=== PATIENT | male | born 1975 | race Caucasian/White ===

== ENCOUNTER 2019-12-07 09:15 | Inpatient (IN) | payer OTHER, SELFPAY ==
[2019-12-07] VITALS (17 sets, daily range): BP systolic 103–142; BP diastolic 67–99; PULSE 60–99; RESP 14–20; TEMP 36.6–37.2; O2SAT 94–100; BMI 24.4
--- NOTE | 2019-12-07 | SCC_ITS ---
Procedure Done: Intramedullary nail left tibia, closed treatment left distal fibula 190.7 seconds of fluoroscopic guidance, for a cumulative dose of 9.54 mGy, was provided to Dr. Yadav by the radiology department. C-arm images of the LEFT tib/fib were saved for the patient's permanent record. [facility]
--- NOTE | 2019-12-07 | XR_ITS ---
WS: [id number] C-ARM RADIOGRAPHS LEFT TIBIA-FIBULA; 5 IMAGES HISTORY: OR PICS COMPARISON: 12/07/2019 Intraoperative long intramedullary tibial lindsey with distal locking screws. Fracture in the distal thir d of the tibia has been reduced and now in normal position. XR/XR tibia fibula LT 2V [id number] IMPRESSION: Intraoperative fixation and reduction distal tibial fracture in good alignment.
--- NOTE | 2019-12-07 09:36 | XR_ITS ---
WS: [id number] LEFT TIBIA-FIBULA 2 VIEWS HISTORY: deformity/injury COMPARISON: None available. Oblique comminuted fracture involving the distal third of the tibia. Distal fracture fragment is disp laced laterally by 13 mm. There is an additional oblique fracture through the distal fibula. This fra cture is only minimally displaced. XR/XR tibia fibula LT 2V [id number] IMPRESSION: 1. Oblique, mildly comminuted and laterally displaced fracture distal third of the tibia. 2. Nondisplaced oblique fracture distal fibula.
--- NOTE | 2019-12-07 09:36 | W.ED.EXTPRO ---
Documented by User: JOSÉ ANTONIO Waller 12/07/19 12:28 HPI - Extremity Problem General: Chief complaint: Extremity Injury, Lower Stated complaint: L LEG INJURY Time Seen by Provider: 12/07/19 09:22 Source: patient Mode of arrival: wheelchair Limitations: no limitations History of Present Illness: HPI Narrative: Patient is a 44-year-old male who presents to ED today for evaluation of a left lower extremity injury. Patient was at work when he accidentally fell off a metal roof (9-10 feet) and states he felt the left leg break. No other injuries sustained during fall. Did not strike his head or lose consciousness. He does not complain of neck or back pain. Patient cannot ambulate on the extremity due to pain. He does complain of some tingling to his left foot. Patient is an otherwise healthy male. He takes no daily medications. MD Complaint: extremity pain Onset (ago): hour(s) Location: left and lower extremity Associated symptoms: Deny chest pain Review of Systems Eyes: Denies: change in vision Card: Denies: chest pain Resp: Denies: dyspnea GI: Denies: abdominal pain Musc: Reports: extremity pain (L LE); Denies: neck pain, back pain, joint pain or joint swelling Neuro: Reports: sensory changes (reports tingling to L LE) Physical Exam Const: COMMON NORMALS: no acute distress, average body habitus, patient oriented x3, no limitations, healthy appearing, alert and well nourished ORIENTATION/CONSCIOUSNESS: Yes oriented to person, Yes oriented to place and Yes oriented to time Neck/C-Spine: CERVICAL SPINE: Yes cervical ROM normal and No Cervical spine tenderness Chest: COMMONS NORMALS: normal inspection of the chest and normal palpation of entire chest wall Resp: COMMON NORMALS: normal respiratory effort and clear to auscultation bilaterally AUSCULTATION: clear to auscultation bilaterally Cardio: COMMON NORMALS: regular rate and regular rhythm RATE: regular rate RHYTHM: regular rhythm Back/Pelvis: COMMON NORMALS: thoracic and lumbar spine normal to inspection, no thoracic nor lumbar tenderness and thoraco-lumbar ROM normal Extremity: GENERAL: Yes normal exam except as noted LEFT LOWER EXTREMITY: Yes lower leg (deformity noted to L LE consistent with tib/fib fracture ) Neuro: COMMON NORMALS: patient oriented x3, no focal motor deficits and no sensory deficits noted SENSORIUM/ORIENTATION: Yes alert, Yes oriented to person, Yes oriented to place and Yes oriented to time GAIT: Yes Unable to assess gait Skin: COMMON NORMALS: no rashes or lesions noted GENERAL SKIN EXAM: no rashes or lesions noted Course Consultations: Consultation #1: Dr. Yadav-has reviewed pts XRs and would like him admitted to him. Plan for OR most likely today. Vital Signs: Vital signs: Vital Signs Temperature 98.4 F 12/07/19 15:51 Pulse Rate 76 12/07/19 15:51 Respiratory Rate 16 12/07/19 15:51 Blood Pressure 106/75 12/07/19 15:51 Pulse Oximetry 98 12/07/19 15:51 MDM - Extremity (Nontraumatic) MDM Narrative: Medical decision making narrative: Dr. Liriano has also seen/evaluated patient and agrees with plan for admit. He placed admit orders at the request of Dr. Yadav. Lab Data: Labs: Lab Results 12/07/19 12/07/19 Range/Units 10:40 10:40 WBC 12.7 H (4.0-10.0) 10^3/ uL RBC 5.12 (4.1-5.3) 10^6/u L Hgb 14.5 (11.7-16.6) g/dL Hct 44.6 (42.0-52.0) % MCV 87.1 (80-94) fL MCH 28.3 (28.0-34.0) pg MCHC 32.5 (30.0-36.0) g/dL RDW 13.2 (12.1-15.1) % Plt Count 271 (130-400) 10^3/c mm MPV 9.6 (7.4-10.4) fL Neut % (Auto) 81.7 % Lymph % (Auto) 11.1 % Luce % (Auto) 5.6 % Eos % (Auto) 0.3 % Baso % (Auto) 0.6 % Neut # (Auto) 10.38 H (1.8-7.7) 10^3/u L Lymph # (Auto) 1.4 (0.8-4.8) 10^3/u L Luce # (Auto) 0.7 (0.2-0.9) 10^3/u L Eos # (Auto) 0.0 (0.0-0.8) 10^3/u L Baso # (Auto) 0.1 (0.0-0.1) 10^3/u L Nucleated RBC % (a uto) 0 % Nucleated RBCs # 0.0 /100WBC Sodium 137 (136-145) mmol/L Potassium 4.1 (3.5-5.1) mmol/L Chloride 105 (98-107) mmol/L Carbon Dioxide 24 (22-29) mmol/L Anion Gap 12.1 (5-19) BUN 21 H (6-20) mg/dL Creatinine 0.9 (0.7-1.2) mg/dL GFR Calculation 91.3 (90-130) mL/min Glucose 135 H (65-115) mg/dL Calculated Osmolal ity 283 L (285-295) mOsm/k g Calcium 8.9 (8.5-10.5) mg/dL Total Bilirubin 0.6 (0.15-1.2) mg/dL AST 29 (0-40) U/L ALT 28 (0-41) U/L Alkaline Phosphata se 61 (40-130) IU/L Total Protein 6.9 (6.6-8.7) g/dL Albumin 4.4 (3.5-5.2) g/dL Globulin 2.5 (1.3-4.6) g/dL Imaging Data^: CXR: Radiologist's impression: [address] [address] XRay Report Signed Patient: Venancio Nathan Unit #: [id number] : 1975 Age/Sex: 44 / M ADM Date: 12/07/19 Loc: ER Room/Bed: Attending Dr: Ordering Provider/Ordering MD: Jessica Linton Date of Service: 12/07/19 Procedure(s): XR chest 1V portable [id number] Accession Number(s): [id number] Report Number: [id number] WS: [id number] PORTABLE CHEST HISTORY: admission COMPARISON: None available. Lungs are clear and well expanded. No pleural effusion or pneumothorax. Cardiac size: Normal. Mediastinum/Aorta: Normal mediastinum. No osseous abnormality seen. XR/XR chest 1V portable [id number] IMPRESSION: Unremarkable portable chest. Dictated By: Monae Pwoell DO Signed By: Monae Powell DO Signed Date/Time: 12/07/19 1033 L LE tib/fib: Radiologist's impression: [facility] [address] [place] [address] XRay Report Signed Patient: Venancio Nathan Unit #: [id number] : 1975 Age/Sex: 44 / M ADM Date: 12/07/19 Loc: ER Room/Bed: Attending Dr: Ordering Provider/Ordering MD: Jessica Linton Date of Service: 12/07/19 Procedure(s): XR tibia fibula LT 2V 50886 Accession Number(s): [id number] Report Number: [id number] WS: [id number] LEFT TIBIA-FIBULA 2 VIEWS HISTORY: deformity/injury COMPARISON: None available. Oblique comminuted fracture involving the distal third of the tibia. Distal fracture fragment is displaced laterally by 13 mm. There is an additional oblique fracture through the distal fibula. This fracture is only minimally displaced. XR/XR tibia fibula LT 2V [id number] IMPRESSION: 1. Oblique, mildly comminuted and laterally displaced fracture distal third of the tibia. 2. Nondisplaced oblique fracture distal fibula. Dictated By: Monae Powell DO Signed By: Monae Powell DO Signed Date/Time: 12/07/19 1032 DD/ 1031 Discharge Plan Discharge Patient Disposition: Admitted As Inpatient Admit Provider: Jose Enrique Yadav Clinical Impression: Closed left tibial fracture Qualifiers: Encounter type: initial encounter Tibia location: shaft Fracture morphology: comminuted Fracture alignment: displaced Qualified Code(s): S82.252A - Displaced comminuted fracture of shaft of left tibia, initial encounter for closed fracture Fracture of left fibula Qualifiers: Encounter type: initial encounter Fibula location: shaft Fracture type: closed Fracture morphology: oblique Fracture alignment: nondisplaced Qualified Code(s): S82.435A - Nondisplaced oblique fracture of shaft of left fibula, initial encounter for closed fracture Fall from roof Qualifiers: Encounter type: initial encounter Qualified Code(s): W13.2XXA - Fall from, out of or through roof, initial encounter Condition: Stable Discharge Date/Time: 12/07/19 12:43 Coding Level of Care Code ED Surgeon/President for [facility] Fwd Exam Comprehensive Documented by User: Roddy Liriano DO 12/07/19 16:42 HPI - Extremity Problem General: Chief complaint: Extremity Injury, Lower Stated complaint: L LEG INJURY Time Seen by Provider: 12/07/19 09:22 History of Present Illness: HPI Narrative: 44-year-old male seen initially by the PA fell 9 to 10 feet landed on his left leg has a obvious deformity of his distal tibia with some ecchymosis. He denies any other injuries. No his did not strike his head no loss consciousness MD Complaint: extremity pain and extremity swelling Onset (ago): hour(s) Location: left and lower extremity Quality: sharp Radiation: none Relieving factors: immobilization Associated symptoms: Reports no associated symptoms; Deny chest pain, fever(s) or rash Context: other (Fall) Review of Systems Const: Denies: fever(s), chills, body aches, change in appetite, fatigue or malaise ENMT: Denies: throat pain, ear or mastoid pain, nasal discharge or nasal congestion Card: Denies: chest pain, edema, dyspnea on exertion or orthopnea Resp: Denies: dyspnea, productive cough or non-productive cough GI: Denies: abdominal pain, nausea, vomiting, hematemesis, coffee ground emesis, diarrhea, constipation, bloating, hematochezia or melena : Denies: flank pain, dysuria, urinary frequency or urinary urgency Skin/Breast: Denies: rash or pruritus Physical Exam Const: COMMON NORMALS: no acute distress GENERAL APPEARANCE: cooperative and comfortable ORIENTATION/CONSCIOUSNESS: Yes awake, Yes oriented to person, Yes oriented to place and Yes oriented to time HENMT: COMMON NORMALS: normocephalic and atraumatic HEAD & SCALP: normocephalic and atraumatic Eye: COMMON NORMALS: Equal, round and reactive pupils present, EOMs intact bilaterally, conjunctivae normal and no scleral icterus CONJUNCTIVA: Yes conjunctivae normal PUPIL: Yes Equal, round and reactive pupils present Neck/C-Spine: COMMON NORMALS: no JVD Resp: COMMON NORMALS: normal respiratory effort, No retractions, No use of accessory muscles and clear to auscultation bilaterally AUSCULTATION: clear to auscultation bilaterally Cardio: COMMON NORMALS: no JVD, regular rate, regular rhythm and No murmurs present (Cardio) RATE: regular rate RHYTHM: regular rhythm GI: COMMON NORMALS: Soft to palpation and No hepatosplenomegaly present AUSCULTATION: Yes normoactive bowel sounds PALPATION: Yes Soft to palpation, No Tenderness to palpation present (GI), No Guarding due to palpation present (GI) and Yes No hepatosplenomegaly present Extremity: COMMON NORMALS: normal to inspection, capillary refill normal, no clubbing, cyanosis or edema, no calf tenderness and no pedal edema Neuro: SENSORIUM/ORIENTATION: Yes oriented to person, Yes oriented to place and Yes oriented to time Course Vital Signs: Vital signs: Vital Signs Temperature 98.4 F 12/07/19 15:51 Pulse Rate 76 12/07/19 15:51 Respiratory Rate 16 12/07/19 15:51 Blood Pressure 106/75 12/07/19 15:51 Pulse Oximetry 98 12/07/19 15:51 MDM - Extremity (Nontraumatic) MDM Narrative: Medical decision making narrative: Cussed with Jessica Linton patient last ate around [id number] also discussed Dr. Yadav review of OR crew he will be kept n.p.o. will admit he plans to do open reduction internal fixation later today. Lab Data: Labs: Lab Results 12/07/19 12/07/19 Range/Units 10:40 10:40 WBC 12.7 H (4.0-10.0) 10^3/ uL RBC 5.12 (4.1-5.3) 10^6/u L Hgb 14.5 (11.7-16.6) g/dL Hct 44.6 (42.0-52.0) % MCV 87.1 (80-94) fL MCH 28.3 (28.0-34.0) pg MCHC 32.5 (30.0-36.0) g/dL RDW 13.2 (12.1-15.1) % Plt Count 271 (130-400) 10^3/c mm MPV 9.6 (7.4-10.4) fL Neut % (Auto) 81.7 % Lymph % (Auto) 11.1 % Luce % (Auto) 5.6 % Eos % (Auto) 0.3 % Baso % (Auto) 0.6 % Neut # (Auto) 10.38 H (1.8-7.7) 10^3/u L Lymph # (Auto) 1.4 (0.8-4.8) 10^3/u L Luce # (Auto) 0.7 (0.2-0.9) 10^3/u L Eos # (Auto) 0.0 (0.0-0.8) 10^3/u L Baso # (Auto) 0.1 (0.0-0.1) 10^3/u L Nucleated RBC % (a uto) 0 % Nucleated RBCs # 0.0 /100WBC Sodium 137 (136-145) mmol/L Potassium 4.1 (3.5-5.1) mmol/L Chloride 105 (98-107) mmol/L Carbon Dioxide 24 (22-29) mmol/L Anion Gap 12.1 (5-19) BUN 21 H (6-20) mg/dL Creatinine 0.9 (0.7-1.2) mg/dL GFR Calculation 91.3 (90-130) mL/min Glucose 135 H (65-115) mg/dL Calculated Osmolal ity 283 L (285-295) mOsm/k g Calcium 8.9 (8.5-10.5) mg/dL Total Bilirubin 0.6 (0.15-1.2) mg/dL AST 29 (0-40) U/L ALT 28 (0-41) U/L Alkaline Phosphata se 61 (40-130) IU/L Total Protein 6.9 (6.6-8.7) g/dL Albumin 4.4 (3.5-5.2) g/dL Globulin 2.5 (1.3-4.6) g/dL Discharge Plan Discharge Patient Disposition: Admitted As Inpatient Admit Provider: Jose Enrique Yadav Clinical Impression: Closed left tibial fracture Qualifiers: Encounter type: initial encounter Tibia location: shaft Fracture morphology: comminuted Fracture alignment: displaced Qualified Code(s): S82.252A - Displaced comminuted fracture of shaft of left tibia, initial encounter for closed fracture Fracture of left fibula Qualifiers: Encounter type: initial encounter Fibula location: shaft Fracture type: closed Fracture morphology: oblique Fracture alignment: nondisplaced Qualified Code(s): S82.435A - Nondisplaced oblique fracture of shaft of left fibula, initial encounter for closed fracture Fall from roof Qualifiers: Encounter type: initial encounter Qualified Code(s): W13.2XXA - Fall from, out of or through roof, initial encounter Condition: Stable Discharge Date/Time: 12/07/19 12:43 Coding Level of Care Code ED Surgeon/President for [facility] Fwd Exam Comprehensive
[2019-12-07] MEDS: morphine 4 mg/mL SDV 1 mL IVP (09:53)
[2019-12-07] MEDS: ondansetron 2 mg/ML SDV 2 mL 4 MG IVP (09:54)
--- NOTE | 2019-12-07 10:14 | XR_ITS ---
WS: [id number] PORTABLE CHEST HISTORY: admission COMPARISON: None available. Lungs are clear and well expanded. No pleural effusion or pneumothorax. Cardiac size: Normal. Mediastinum/Aorta: Normal mediastinum. No osseous abnormality seen. XR/XR chest 1V portable [id number] IMPRESSION: Unremarkable portable chest.
[2019-12-07] MEDS: HYDROmorphone 1 mg/mL INJ 1 mL IVP (10:24)
[2019-12-07 10:47] LABS: Basophils # 0.1 10^3/uL (0.0-0.1); Basophils % 0.6 %; Eosinophils % 0.3 %; Hematocrit 44.6 % (42.0-52.0); Hemoglobin 14.5 g/dL (11.7-16.6); Lymphocytes # 1.4 10^3/uL (0.8-4.8); Lymphocytes % 11.1 %; Mean Corpuscular HGB Conc 32.5 g/dL (30.0-36.0); Mean Corpuscular Hemoglobin 28.3 pg (28.0-34.0); Mean Corpuscular Volume 87.1 fL (80-94); Mean Platelet Volume 9.6 fL (7.4-10.4); Monocytes # 0.7 10^3/uL (0.2-0.9); Monocytes % 5.6 %; Neutrophils # 10.38 10^3/uL (1.8-7.7); Neutrophils % 81.7 %; Nucleated Red Blood Cells % 0 %; Platelet Count 271 10^3/cmm (130-400); Red Blood Count 5.12 10^6/uL (4.1-5.3); Red Cell Distribution Width 13.2 % (12.1-15.1); White Blood Count 12.7 10^3/uL (4.0-10.0)
[2019-12-07 11:05] LABS: Alanine Aminotransferase 28 U/L (0-41); Albumin Level 4.4 g/dL (3.5-5.2); Alkaline Phosphatase 61 IU/L (40-130); Anion Gap 12.1 (5-19); Aspartate Amino Transferase 29 U/L (0-40); Blood Urea Nitrogen 21 mg/dL (6-20); Calcium 8.9 mg/dL (8.5-10.5); Carbon Dioxide 24 mmol/L (22-29); Chloride 105 mmol/L (98-107); Globulin 2.5 g/dL (1.3-4.6); Glomerular Filtration Rate 91.3 mL/min (90-130); Glucose 135 mg/dL (65-115); Osmolality Calculated 283 mOsm/kg (285-295); Potassium 4.1 mmol/L (3.5-5.1); Sodium 137 mmol/L (136-145); Total Bilirubin 0.6 mg/dL (0.15-1.2); Total Protein 6.9 g/dL (6.6-8.7)
[2019-12-07] MEDS: morphine 4 mg/mL SDV 1 mL 2 MG IVP ×2 (14:55→23:49)
--- NOTE | 2019-12-07 17:35 | PC.NURSE ---
off unit to OR
--- NOTE | 2019-12-07 17:50 | P.ANESASSM_ITS ---
Pre-Anesthetic Assessment Pre-Anesthetic Assessment: Height/Weight: Height 1.83 m Weight 81.647 kg Temp Pulse Resp BP Pulse Ox 98.6 F 68 18 116/86 98 12/07/19 17:37 12/07/19 17:37 12/07/19 17:37 12/07/19 17:37 12/07/19 17:37 Preop Diagnosis: Tibial fracture Proposed Procedure: Operation Date: 12/07/19 18:00 Proposed Procedures p IM Tibial Nail Insertion(Left) - Jose Enrique Yadav MD Familial anesthetic complications: None Was Beta Srikanth taken within 24 hours: N/A Last intake: Breakfast 729 Social: Social History: No alcohol and No tobacco Exam: Pre-Anes Outpt Exam: alert, oriented x 3, clear to auscultation bilaterally and regular rate & rhythm Airway: Cervical ROM: WNL MP: 1 Dentition: Full Pulmonary: Pulmonary: None reported CV/HEM: CV/HEM: None reported : : None reported Hepatic: Hepatic: None reported GI: GI: None reported Metabolic: Metabolic: None reported Musc/skel: Musc/skel: None reported Neuropsych: Neuropsych: None reported Anesthetic Plan: ASA status: 1 Anesthesia: General and Regional (specify below) Risk of > 500 ml blood loss (7ml/kg in children): No Meds/Allergies Current Medications: Current Medications Generic Name Dose Route Start Last Admin Trade Name Freq PRN Reason Stop Dose Admin Morphine Sulfate 2 mg 12/07/19 12:49 12/07/19 14:55 Morphine IVP 2 mg Q4H PRN Administration SEVERE PAIN Data Anesthesia CBC & Chem 7: 12/07/19 10:40 12/07/19 10:40 Other Labs: Laboratory Results - last 48 hr 12/07/19 12/07/19 10:40 10:40 WBC 12.7 H RBC 5.12 Hgb 14.5 Hct 44.6 MCV 87.1 MCH 28.3 MCHC 32.5 RDW 13.2 Plt Count 271 MPV 9.6 Neut % (Auto) 81.7 Lymph % (Auto) 11.1 [place] % (Auto) 5.6 Eos % (Auto) 0.3 Baso % (Auto) 0.6 Neut # (Auto) 10.38 H Lymph # (Auto) 1.4 [place] # (Auto) 0.7 Eos # (Auto) 0.0 Baso # (Auto) 0.1 Nucleated RBC % (auto) 0 Nucleated RBCs # 0.0 Sodium 137 Potassium 4.1 Chloride 105 Carbon Dioxide 24 Anion Gap 12.1 BUN 21 H Creatinine 0.9 GFR Calculation 91.3 Glucose 135 H Calculated Osmolality 283 L Calcium 8.9 Total Bilirubin 0.6 AST 29 ALT 28 Alkaline Phosphatase 61 Total Protein 6.9 Albumin 4.4 Globulin 2.5 Cardiac Studies: No Data to Display
--- NOTE | 2019-12-07 17:51 | ANES.PROC ---
Anesthesia Procedures Procedure/Date: 12/07/19 Nerve Block ^: Nerve Block 1: Main Anesthesia: general anesthesia Time Out Performed: Yes Consent: from patient, risks and benefits reviewed, patient agrees to proceed and emergency procedure Nerve block location: popliteal (L) Anesthesia monitors applied: pulse oximetry, BP cuff and oxygen Nerve block position: supine Anesthetic Used: ropivicaine 0.5% and with decadron (4 mg) Amount of anesthesia used (mL): 30 Ultrasound used to: recognize landmarks Nerve Stimulator Used?: No Interscalene/Femoral BLK: 4 stimuplex 21 g needle used for position and inplane approach, visualize local anesthetic spread and no vascular puncture identified Injection: neg aspiration of heme Patient Tolerated Procedure: well Complications: none
[2019-12-07 17:56] LABS: Add Urine Microscopic? NO
[2019-12-07 18:17] LABS: Bilirubin Urine Neg (NEGATIVE); Blood Urine Neg (Negative); Glucose Urine UA Norm (Normal); Ketones Urine Negative (Negative); Leukocyte Esterase Urine Negative (Negative); Nitrate Urine Negative (Negative); Protein Urine Neg (Negative); Specific Gravity, Urine 1.025 (1.005-1.030); Urine Appearance Clear (CLEAR); Urine Color Yellow (Yellow); Urobilinogen Urine Neg (Negative); pH Urine 5 (5-7)
--- NOTE | 2019-12-07 19:10 | PC.NURSE ---
SHIFT CHANGE Pt in OR at change of shift
--- NOTE | 2019-12-07 21:17 | P.HP_ITS ---
Providers/Chief Complaint Admitting Physician: Jose Enrique Yadav MD Primary Care Provider: Tomas Jaquez MD Chief Complaint: L LEG INJURY History of Present Illness Venancio Nathan is a 44 year old male who fell approximately 10 feet from a roof landing on his left leg with immediate leg and ankle pain. Seen in the emergency room where radiographs revealed a left tib-fib fracture. He is admitted to orthopedics for definitive management of the fracture. The patient denies any previous problems with the left leg. He denies any other extremity pain. He has no loss of consciousness. Review of Systems General: Reports: 10 or more systems reviewed and unremarkable except in HPI and below Medications/Allergies Home Medications Medication Instructions Recorded Confirmed Last Taken Type No Known Home Medications 12/07/19 12/07/19 Unknown History Allergies Allergy/AdvReac Type Severity Reaction Status Date / Time shellfish derived Allergy ADR-Vomitin Verified 12/07/19 09:29 g Vitals/I&O/Wt Last Vital Signs Temp 98.6 F 12/07/19 17:37 Pulse 68 12/07/19 17:37 Resp 18 12/07/19 17:37 BP 116/86 12/07/19 17:37 Pulse Ox 98 12/07/19 17:37 12/07/19 12/07/19 12/07/19 06:59 14:59 22:59 Output Total 200 / 200 Balance -200 / -200 Weight last 48 hrs Weight 180 lb Physical Exam Narrative: EXAM NARRATIVE: HEAD: Normocephalic/atraumatic. NECK: Soft supple nontender. HEART: Normal heart sounds, regular rhythm. CHEST: Clear to auscultation. ABDOMEN: Soft nontender nondistended. Patient is swelling and visible deformity of the left leg and ankle. A block is been placed by anesthesia and he will not move his toes or his ankle. His calf does appear soft. He has a palpable left dorsalis pedis pulse. Data : 12/07/19 10:40 12/07/19 10:40 Xray Ortho: My impression: Radiographs of the left tibia and fibula are reviewed. The patient has a spiral fracture of his left tibia of the distal diaphysis.. There is a oblique fracture of the lateral malleolus at the level of the mortise. A&P Assessment and plan (1) Closed left tibial fracture: Status: Acute Qualifiers: Encounter type: initial encounter Fracture alignment: displaced Fracture morphology: comminuted Tibia location: shaft Qualified Code(s): S82 .252A - Displaced comminuted fracture of shaft of left tibia, initial encounter for closed fracture (2) Fracture of left fibula: I discussed treatment of the injury with the patient. I told her but agreed displacement is certainly best stabilized surgically and I think the best device would be a intramedullary nail. The there is as well a displaced fibular fragment. This may require additional open reduction internal fixation as well. I discussed risks with surgery including nonunion and malunion. I discussed the possible need for further procedures including hardware removal. I discussed risk of bleeding infection. Discussed risk of a deep venous thromb oses and pulmonary emboli. This is a very distal fracture I do not think the risk would be exceptionally high. I told him there will be some time for this to recover and he can expect 3 to 6 months before he can return to work. I see no medical contraindications. We will proceed to the OR. Status: Acute Qualifiers: Encounter type: initial encounter Fibula location: shaft Fracture alignment: nondisplaced Fracture morphology: oblique Fracture type: closed Qualified Code(s): S82.435A - Nondisplaced oblique fracture of shaft of left fibula, initial encounter for closed fracture Attestations Medical Necessity Statement*: Patient will require overnight observation for pain control. He may did be discharged home once his pain is adequately controlled and he is independent with his crutches. Coding Level of Care Code Acute [place] [facility]eguard Specialist for [facility] Diagnoses Closed left tibial fracture S82.252A Encounter type: initial encounter Fracture alignment: displaced Fracture morphology: comminuted Tibia location: shaft Fracture of left fibula S82.435A Encounter type: initial encounter Fibula location: shaft Fracture alignment: nondisplaced Fracture morphology: oblique Fracture type: closed
[2019-12-07] MEDS: ceFAZolin 1,000 mg SDV 2000 MG IVP (22:17)
--- NOTE | 2019-12-07 23:23 | PM.OP ---
Operative Report Date of procedure: December 07, 2019 Pre-op Diagnosis: Tibial/fibular fracture Post-op diagnosis: same Post-op Findings: Same Procedure Done: Intramedullary nail left tibia, closed treatment left distal fibula Implants: [place] T2 tibial nail [id number] Pathology: none sent Surgeon: Jose Enrique Yadav Anesthesia: General and Nerve Block (Popliteal block) Estimated blood loss (mL): 150 Tourniquet time (min): 51 Findings: Patient had no blood bleed spiral fracture of the left distal tibial diaphysis and oblique fracture of the distal fibula at the level of the mortise. With anatomic alignment of the tibia the fibular puncture was anatomically aligned as well Condition: stable Disposition: PACU Brief History: Mr. Nathan sustained a spiral left tibia fracture with a low fibular fracture as a result of a fall from a 10 foot roof. Due to degree of displacement surgical stabilization was chosen to improve chances of union and overall function. After stabilization of the tibia the fibula fracture was anatomically reduced and fixation of the fibula was not warranted Procedure: Popliteal block was provided by anesthesia and holding. Patient was taken to the operating room and given a general anesthesia. He is given 2 g of Ancef and positioned on the fracture table. A timeout was performed. A tourniquet was inflated to 300 mmHg. A 4 cm long incision was made from the medial patella along the patellar tendon. A sharp awl was entered from the anterior tibia down the canal and a ball-tipped guidewire passed distally down the tibia. With longitudinal traction and manual reduction of the medial cortex anatomic reduction could be obtained. Sequential reaming was begun at 9 and carried up to 11.5 mm. The ball-tipped guidewire was exchanged for a straight guidewire and the final Paula T2 nail was placed. The proximal guides were used to place a single 6 the attic possible screw in a medial lateral direction. Under the visualization of fluoroscopy a single anterior to posterior into medial lateral screws were placed. Intraoperative imaging showed satisfactory position of the nail and maintained reduction of the fracture. Particular attention was paid to the distal fibula which was found to be anatomically reduced. Wounds were irrigated with saline. Deep tissues were closed with 0 Vicryl. Subcutaneous tissues were closed with 2-0 Vicryl. The skin was closed with skin suleman. Xeroflo gauze 4 x 4's and a compressive Nando wrap were applied. Patient was extubated and taken to recovery room in stable condition.
--- NOTE | 2019-12-07 23:35 | SUR.PHASEI ---
2327- ORAL AIRWAY OUT, SIMPLE MASK AT 10LPM, SAT 99%
--- NOTE | 2019-12-07 23:46 | ANE.PACU2 ---
Inpatient post-anesthesia follow up: Airway intact: Yes Vital signs: Temperature 97.8 F Pulse Rate [Monito r] 68 Pulse Rate 90 Respiratory Rate 18 Blood Pressure [Ri ght Arm] 105/67 Blood Pressure 142/94 Pulse Oximetry 94 Oxygen Delivery Me thod Room Air Oxygen Flow Rate 10 Fraction of Inspir ed Oxygen Hydration adequate: Yes Nausea and vomiting: No Pain level: 2 Mental status: Baseline
[2019-12-08] VITALS (11 sets, daily range): BP systolic 109–133; BP diastolic 68–84; PULSE 84–96; RESP 16–20; TEMP 36.8; O2SAT 92–97
--- NOTE | 2019-12-08 00:42 | PC.NURSE ---
RETURN FROM OR Returned from OR in bed at 0010, Awake and alert. c/o pain in left knee. It hurts like a son of a gun Has pillows under knee for support. Bulky dressing/kirk wrap & boot in place to left leg. Unable to assess anything but toes for neurovascular check. SCD applied to RLE. Denies any nausea. Gave jello and 7-up. IV patent and infusing at 80ml/hr rate. Had IV Morphine in PACU before coming to floor. Will medicate as soon as can have again. Also going to get po Oxyir on board.
[2019-12-08] MEDS: oxyCODONE 5 mg IR Tab/Cap PO ×3 (01:04→10:57)
[2019-12-08] MEDS: morphine 4 mg/mL SDV 1 mL IVP ×2 (01:05→02:51)
[2019-12-08] MEDS: sodium chloride 0.9% 1,000 ML 80 ML IV (05:37)
[2019-12-08] MEDS: ceFAZolin 1,000 MG in sodium chloride 0.9% (plus) 50 ML 100 MG IV (05:38)
--- NOTE | 2019-12-08 06:12 | PC.NURSE ---
SHIFT SUMMARY Has slept for intervals after surgery. c/o quite a bit of pain when awake and says is mostly in the knee. Has had no bleeding and dressing remains dry & intact. Has received IV Morphine and po Oxyir for pain relief. Tolerating clear liquids well and says ready for food. IV infusing without difficulty. Voiding per urinal.
[2019-12-08] MEDS: aspirin 325 mg EC Tablet PO (08:17)
--- NOTE | 2019-12-08 08:38 | PC.NURSE ---
pt visible from hallway, resting in bed. pt states that he is not in pain at the moment, but that his knee is slightly sore. pt states, my toes and foot are numb, I cannot feel it very well. Dr. Yadav in room with pt during this time to provide education. pt is able to sit up well on his own and use the urinal by himself with standby assistance.
--- NOTE | 2019-12-08 09:00 | P.DS_ITS ---
Discharge Providers Date of Admission: 12/07/19 11:44 Date of Discharge: December 08, 2019 Attending Provider at Admission: Jose Enrique Yadav MD Attending Provider at Discharge: Jose Enrique Yadav MD Primary Care Provider: Tomas Jaquez MD Diagnoses at Discharge Discharge Diagnosis (1) Closed left tibial fracture: Status: Acute Qualifiers: Encounter type: initial encounter Fracture alignment: displaced Fracture morphology: comminuted Tibia location: shaft Qualified Code(s): S82.252A - Displaced comminuted fracture of shaft of left tibia, initial encounter for closed fracture (2) Fracture of left fibula: Status: Acute Qualifiers: Encounter type: initial encounter Fibula location: shaft Fracture alignment: nondisplaced Fracture morphology: oblique Fracture type: closed Qualified Code(s): S82.435A - Nondisplaced oblique fracture of shaft of left fibula, initial encounter for closed fracture (3) Postoperative state: Status: Acute Reason for Visit Reason for Visit: L LEG INJURY Hospital Course Hospital Course: Mr. Nathan is a 44-year-old male who fell 10 feet from a roof with resulting left tib-fib fracture. He was taken to the operating room where he underwent intramedullary nailing. He tolerated the procedure well. By the first postoperative day his pain was tolerated oral medications. He was hemodynamically stable. He was independent with crutches and able to maintain 50% weightbearing or less. And thought stable for discharge. Physical Exam Narrative: EXAM NARRATIVE: On 12/08/2019 his dressings were clean. Complains of subjective numbness in his foot in a global distribution and would not move his toes. He had no pain with passive stretch of his digits. Discharge Data Data Completed and Pending: Completed Studies During Hospitalization Category Date Time Status XR chest 1V brittany ble 66859 Urgent Exams 12/07/19 10:14 Completed XR tibia fibula L T 2V 89967 Routine Exams 12/07/19 Completed XR tibia fibula L T 2V 45045 Stat Exams 12/07/19 09:36 Completed Labs from last 24 hours 12/07/19 12/07/19 12/07/19 17:15 10:40 10:40 WBC 12.7 H RBC 5.12 Hgb 14.5 Hct 44.6 MCV 87.1 MCH 28.3 MCHC 32.5 RDW 13.2 Plt Count 271 MPV 9.6 Neut % (Auto) 81.7 Lymph % (Auto) 11.1 [place] % (Auto) 5.6 Eos % (Auto) 0.3 Baso % (Auto) 0.6 Neut # (Auto) 10.38 H Lymph # (Auto) 1.4 [place] # (Auto) 0.7 Eos # (Auto) 0.0 Baso # (Auto) 0.1 Nucleated RBC % (a uto) 0 Nucleated RBCs # 0.0 Sodium 137 Potassium 4.1 Chloride 105 Carbon Dioxide 24 Anion Gap 12.1 BUN 21 H Creatinine 0.9 GFR Calculation 91.3 Glucose 135 H Calculated Osmolal ity 283 L Calcium 8.9 Total Bilirubin 0.6 AST 29 ALT 28 Alkaline Phosphata se 61 Total Protein 6.9 Albumin 4.4 Globulin 2.5 Urine Color Yellow Urine Appearance Clear Urine pH 5 Ur Specific Gravit y 1.025 Urine Protein Neg Urine Glucose (UA) Norm Urine Ketones Negative Urine Blood Neg Urine Nitrate Negative Urine Bilirubin Neg Urine Urobilinogen Neg Ur Leukocyte Joann ase Negative Vitals: Last Vital Signs Temp 98.2 F 12/08/19 06:30 Pulse 85 12/08/19 06:30 Resp 19 H 12/08/19 06:30 BP 109/68 12/08/19 06:30 Pulse Ox 95 12/08/19 06:30 Discharge Plan Discharge Patient Disposition: Home Condition: Stable Prescriptions: New oxycodone 5 mg Tablet 5 - 10 mg PO Q4H PRN (Reason: Moderate To Severe Pain) 7 Days Qty: 40 RF: 0 aspirin 325 mg Tablet,Delayed Release (Dr/Ec) 325 mg PO DAILY 30 Days RF: 0 No Action No Known Home Medications RF: 0 Discharge Orders: Discharge Order (Routine); Ordered 12/08/19 Ordered By: Jose Enrique Yadav Other Ambulatory Orders: DME: Cane/ Crutches (Order) Location: None Selected Ordered By: Jose Enrique Yadav Referrals: Tomas Jaquez MD [Primary Care Provider] - Discharge Diet: Advance as tolerated Discharge Activity: Limit activity as instructed Activity Restrictions/Additional Instructions: May remove boot to shower May shower once incisions completely free of drainage. Replaced dressings as ne eded for drainage. Take Tylenol or anti-inflammatories for mild pain. Take oxycodone for breakthrough pain. Exercises per physical therapy. 50% percent weightbearing left lower extremity Ice and elevate knee as needed for pain and swelling.. Discharge Attestations Time Spent in Discharge Care*: other Quality Metrics Clinical Quality Measures During this hospital stay, did patient experience: None Coding Level of Care Code Acute Outpatient Facility Physical Therapist for g Fwd Diagnoses Closed left tibial fracture S82.252A Encounter type: initial encounter Fracture alignment: displaced Fracture morphology: comminuted Tibia location: shaft Fracture of left fibula S82.435A Encounter type: initial encounter Fibula location: shaft Fracture alignment: nondisplaced Fracture morphology: oblique Fracture type: closed Postoperative state Z98.890
--- NOTE | 2019-12-08 09:26 | PC.OT ---
OT Note: Screen completed. Pt completed supine to sit with HOB elevated with mod I. Toilet transfer with walker, mod I. Don/doff sock R LE independently. Pt reports self-dressing yesterday. BUE strength 5/5. No OT needed.
--- NOTE | 2019-12-08 10:08 | DCPLANNER ---
Physical Therapy; Luke had entered a walker order however pt states that he has one at home, his is bringing it when she comes to pick him up. He states that Kyle must have misunderstood him. He is ready to go, waiting for his .
--- NOTE | 2019-12-08 11:19 | PC.CHAP ---
Pastoral Care Encounter/Spiritual Assessment Type of Contact [] Declined head greenskeeper visit [] Patient/Family/Request visit [] Outpatient visit [] Follow-up visit [] Physician referral [] Code/Alert [x] Routine visit [] Staff referral [] Actively dying [] Patient sleeping [] Family support [] [] Out of room [] Palliative care [] [] Receiving care in room [] Pre-surgical visit [] Trauma [] Long length of stay [] ICU visit [] Other: Relational/Emotional Strength [x] Patient feels connected with others/family/visitors/staff [] Distress [] Loneliness/isolation [] Abandonment Spirituality of Patient [x] Person of [place]iss[place] [x] Attends Yazidi of their [place] [x] Believes in Prayer [x] Reads Bible or Alevism materials [] There are Spiritual issues to be addressed Rn Visiting Interventions [x] Prayer [x] Active listening [x] Non-anxious presence [x] Spiritual/emotional support [] Crisis/trauma care [] Spiritual counseling [] Bereavement support [] Provided bereavement packet [] Provided Bible/devotional materials [] Provided toy/stuffed animal, coloring book to patient or family member [] Provided Communion [] Anointing/[place] [] Salvation [x] Completed spiritual assessment [] Other: Impact on Illness or Injury [] Angry [] Fearful [] Anxious [] Often cries [] Exhaustion [] Unable to work [] Unable to attend orthodoxy [] Unable to walk/stand [] Unable to read [] Unable to drive [] Unable to eat/drink [] Unable to sleep [] Unable to be with family [] Patient intubated [x] Other: Summary Patient is strong in his lissett involving the [employer], attends [employer] in [place]. Time spent with patient 10 minutes
== END 2019-12-08 10:50 | disposition home or self-care (01) | DRG 494 ==
LOC: ER 11:44 → MEDSURG 12:13
PROVIDERS: Physician Assistant; Admitting Provider Orthopaedic Surgery; PCP Family Medicine; Visit Provider Orthopaedic Surgery
PROC: 0QSH06Z Reposition Left Tibia with Intramedullary Internal Fixation Device, Open Approach (ICD-10-PCS; principal; 2019-12-07 18:00)
DX: S82.435A Nondisplaced oblique fracture of shaft of left fibula, initial encounter for closed fracture (principal); S82.252A Displaced comminuted fracture of shaft of left tibia, initial encounter for closed fracture; W17.89XA Other fall from one level to another, initial encounter; Y93.89 Activity, other specified; Y92.008 Other place in unspecified non-institutional (private) residence as the place of occurrence of the external cause
CPT/HCPCS: 12345; 36415; 71045; 73590; 76000; 80053; 81003; 85025; 96375; 97116; 97161; 99282; C1713; J0690; J1100; J1170; J1580; J2250; J2270; J2405; J2704; J2795; J3010; J7030

== ENCOUNTER 2023-01-20 13:48 | Outpatient (CLI) | payer OTHER, SELFPAY ==
--- NOTE | 2023-01-20 14:08 | CT_ITS ---
WS: [id number] CT NECK TECHNIQUE: Contrast-enhanced CT of the neck with coronal and sagittal reformatted images. CLINICAL INFORMATION: LYMPHADENOPATHY COMPARISON: None. DLP: [address] scans at [facility] use at least one of these dose optimization techniques: automated e xposure control; mA and/or kV adjustment per patient size (includes targeted exams where dose is matc hed to clinical indication); or iterative reconstruction. FINDINGS: Diffuse bilateral cervical lymphadenopathy involving all cervical chains. This extends into the poste rior triangle and lower neck at the thoracic inlet. Supraclavicular and retropectoral lymphadenopathy . Partially visualized upper axillary bulky lymphadenopathy. Findings suspicious for lymphoma. Larges t lymph nodes measure up to 2.5 cm. Lung apices are well aerated. LEFT thyroid nodule measuring 1.7 x 1.1 cm. Mastoid air cells are well aerated. Air-fluid level within the RIGHT maxillary sinus. Prominent intraparotid lymph nodes bilater ally. Normal posterior nasopharynx. Normal parapharyngeal fat. No evidence of supraglottic or glottic mass. Normal subglottic airway. Mastoid air cells well aerated. Straightening of the normal cervical lordosis. IMPRESSION: 1. Diffuse bulky cervical lymphadenopathy throughout all cervical chains extending to the thoracic i nlet. 2. Bulky posterior triangle, supraclavicular, and retropectoral lymphadenopathy. Partially visualiz ed upper axillary bulky lymphadenopathy. Findings suspicious for lymphoma. 3. Recommend further evaluation with CT chest abdomen pelvis and or PET/CT. 4. LEFT thyroid nodule measuring 1.7 x 1.1 cm. This could be followed-up with ultrasound. 5. RIGHT maxillary sinusitis.
[2023-01-20] MEDS: iohexol 350 mg/mL 500 mL Btl (per mL) IV (14:33)
== END 2023-01-20 13:49 | disposition home or self-care (01) ==
PROVIDERS: Visit Provider Family Medicine
DX: R59.1 Generalized enlarged lymph nodes (principal); E04.1 Nontoxic single thyroid nodule; J32.0 Chronic maxillary sinusitis
CPT/HCPCS: 70491; Q9967

== ENCOUNTER 2023-05-29 16:46 | Outpatient (CLI) | payer OTHER, SELFPAY | END 2023-05-29 16:47 | disposition home or self-care (01) | PROVIDERS: Absent Provider Internal Medicine Medical Oncology; PCP Nurse Practitioner; Visit Provider Nurse Practitioner | DX: J06.9 Acute upper respiratory infection, unspecified (principal); C83.00 Small cell B-cell lymphoma, unspecified site | CPT/HCPCS: 87040 ==